=== PATIENT | female | born 1985 | race Two or more races ===

== ENCOUNTER 2016-12-30 23:39 | Emergency (ER) | payer MEDICAID ==
[~2016-12-30] VITALS: Ht 160 cm; Wt 59.0 kg
[2016-12-31] MEDS ORDERED: HYDROCODONE/ACETAMINOPHEN 5/325MG TABLET PO ONE (03:15)
[2016-12-31 04:05] VITALS: BP 114/82
== END 2016-12-31 04:09 | disposition home or self-care (01) ==
LOC: ER 23:39
DX: K08.89 Other specified disorders of teeth and supporting structures (principal)
CPT/HCPCS: 99283; Z7610